=== PATIENT | female | born 1995 | race Caucasian/White ===

== ENCOUNTER 2021-11-08 16:02 | Emergency (ER) | payer BC ==
[2021-11-08] MEDS ORDERED: Sodium Chloride 0.9% 1,000 ML IV ONE ×2 (16:06→17:30)
[2021-11-08] MEDS ORDERED: Ondansetron 4 MG/2 ML SDV ONE (16:30)
[2021-11-08] MEDS: Sodium Chloride 0.9% 10 ML Syringe FLUSH PRN ×2 (16:32→17:01)
[2021-11-08] MEDS ORDERED: Ondansetron 4 MG/2 ML SDV IVPUSH ONE (16:38)
[2021-11-08] MEDS ORDERED: Loperamide 2 MG Tab PO ONE (16:38)
[2021-11-08 16:52] LABS: CHLORIDE,CL 103 mmol/L (98-107); SODIUM,NA 139 mmol/L (136-145)
[2021-11-08] MEDS ORDERED: Ketorolac 15 MG/ML SDV IVPUSH ONE (16:55)
[2021-11-08 16:57] LABS: ANION GAP 19.9 meq/L (7-15)
[2021-11-08 17:12] LABS: CORONAVIRUS COVID-19 NAA NEGATIVE (NEGATIVE); RESPIRATORY SYNCYTIAL VIR NAA NEGATIVE (NEGATIVE)
[2021-11-08] MEDS ORDERED: Promethazine 25 MG/ML SDV IM ONE (18:45)
== END 2021-11-08 19:35 | disposition home or self-care (01) ==
LOC: LL.ED 16:02
DX: K52.9 Noninfective gastroenteritis and colitis, unspecified (principal); E86.0 Dehydration; E83.42 Hypomagnesemia; Z20.822 Contact with and (suspected) exposure to COVID-19
CPT/HCPCS: 0241U; 36415; 80053; 83605; 83735; 85025; 96365; 96372; 96375; 99284; 99284-25; J1885; J2405; J2550; J3475; J3490; J7030